=== PATIENT | female | born 1970 | race Caucasian/White ===

== ENCOUNTER → 2016-04-10 | Emergency (ER) ==
[~2016-04-10] MED LIST: NS 1,000 ML IV ONE
[2016-04-10 13:09] LABS: URINE SOURCE CLEAN CATCH
--- NOTE | 2016-04-10 13:22 | PROVIDER DOCUMENTATION ---
HPI-Abdominal Pain/GI Problem - General Chief Complaint: Rectal Bleeding Stated Complaint: DIARRHEA Time Seen by Provider: 04/10/16 13:10 Source: patient Allergies/Adverse Reactions: Patient Allergies Allergy/AdvReac Type Severity Reaction Status Date / Time No Known Allergies Allergy Verified 04/10/16 11:39 Home Medications: Prednisone 10 mg PO DAILY 04/10/16 Stelara 04/10/16 - History of Present Illness-ABD Nature of Presenting Problems: Pt is 45 y/o F presents to the ED with rectal bleeding. Pt states being diagnosed with Crohn's 2 and a half years ago. Pt states having rectal bleeding is normal for her, but she feels like the bleeding has increased. Pt states GI doctor has recently changed her meds. PT denies F. Pt denies N and V. Abdominal Pain Onset Location: denies: RUQ, LUQ, RLQ, LLQ, epigastric, periumbilical, suprapubic, generalized abdomen, flank, unknown, other Pain Radiation: reports: no radiation Quality of Pain: reports: none Onset/Duration: reports: 1 week ago Timing: reports: still present, intermittent Activities at Onset: reports: light activity Exposure to sick contacts?: No Modifying Factors: improves with: nothing Associated Symptoms: reports: weakness. denies: arm pain, cough, fever/chills, loss of appetite, sinus congestion/drainage, nausea, shortness of breath, vomiting Last BM: unsure Dark Stools Present?: reports: other (unsure) Rectal Bleeding: reports: bleeding without stool Rectal Pain: reports: other (Crohn's.) Emesis Description: reports: none Bruising or Bleeding Gums?: No Similar Symptoms Previously?: Yes Recently seen or treated by another doctor?: No Review of Systems - Adult - REVIEW OF SYSTEMS - ADULT Constitutional: denies: chills, fever Eyes: denies: blurred vision, double vision Ears, Nose, Mouth & Throat: denies: ear pain, nose pain, throat pain Cardiovascular: denies: chest pain, heart murmur, irregular heart rate Respiratory: denies: chronic cough, cough, shortness of breath, wheezing Gastrointestinal: reports: rectal bleeding. denies: abdominal pain, diarrhea, nausea, vomiting Genitourinary: denies: dysuria, hematuria Musculoskeletal: denies: bone pain, joint pain, neck pain Integumentary: denies: hives, itching Neurological: reports: no symptoms reported Psychiatric: reports: no symptoms reported Endocrine: reports: no symptoms reported Hematologic/Lymphatic: reports: no symptoms reported Allergic/Immunologic: reports: no symptoms reported All Other Systems: Reviewed and Negative Past History - Adult - PAST MEDICAL HISTORY-ADULT Review of Records: reports: Nursing Assessment Review, Medications Reviewed, Social history reviewed & non-contributory. Major Childhood Illnesses: reports: denies history Cardiovascular: reports: denies history Respiratory: reports: denies history Gastrointestinal: reports: Crohn's Obstetrical/Gynecological: reports: denies history Genitourinary: reports: denies history Musculoskeletal: reports: denies history Neurological: reports: denies history Endocrine/Immune: reports: denies history Other Conditions: reports: denies history - PRIOR SURGERIES/PROCEDURES Surgical/Procedure History: reports: appendectomy, - IMMUNIZATION STATUS Childhood Immunizations: See Nurse Assessment Flu Vaccine: See Nurse Assessment - FAMILY HISTORY Family History: reviewed, not pertinent - SOCIAL HISTORY Smoking: denies Substance Use: denies Living Situation: family Physical Exam-General - PHYSICAL EXAM-ADULT Initial Vital Signs Reviewed: Yes - CONSTITUTIONAL General Appearance: appears well, alert, no apparent distress - EYES Eyes: PERRL/EOMI, pink conjunctivae - HEAD, EARS, NOSE, MOUTH & THROAT HENMT: normocephalic/atraumatic, moist mucous membranes, normal ENT inspection - NECK Neck: non-tender, full range of motion, supple, normal inspection - RESPIRATORY Respiratory: chest non-tender, lungs clear, normal breath sounds - CARDIOVASCULAR Cardiovascular: normal peripheral pulses, regular rate, rhythm, no edema - GASTROINTESTINAL (ABDOMEN) Abdominal Exam: normal bowel sounds, non tender, soft - LYMPHATIC Lymphatic: no adenopathy - MUSCULOSKELETAL Back Exam: normal inspection, no CVA tenderness, no vertebral tenderness Extremity: normal range of motion, non-tender, normal gait - SKIN Integumentary: normal color, normal turgor, warm/dry - NEUROLOGIC Neurologic: pipe layer helper II-XII nml as tested, grossly normal, no motor/sensory deficits - PSYCHIATRIC Psych/Mental Status: normal mood/affect, normal thought content, normal thought process, oriented x 3 Progress - PLAN OF CARE/RESULTS Progress/Plan/Lab Results: Laboratory Tests 04/10/16 12:57 Urine Source CLEAN CATCH Orders Category Date Time Status CBC WITH ELECTRONIC DIFF [HEME] Stat Lab 04/10/16 13:10 Uncollected COMPREHENSIVE METABOLIC PANEL [CHEM] Stat Lab 04/10/16 13:10 Ordered UA [URINALYSIS PL W/POSS RFLX CULT] [URINALYSIS] Stat Lab 04/10/16 12:57 Results 0.9% Sodium Chloride Inj [Ns] 1,000 ml Med 04/10/16 13:12 Active IV 999 mls/hr Vital Signs - 24 hr 04/10/16 11:35 Temperature 98.3 F Pulse Rate 98 H Respiratory 18 Rate Blood Pressure 120/085 O2 Sat by Pulse 97 Oximetry Laboratory Tests 04/10/16 04/10/16 04/10/16 12:57 13:20 13:20 WBC 8.78 RBC 4.33 Hgb 10.3 L Hct 32.9 L MCV 76.0 L MCH 23.8 L MCHC 31.3 L RDW Std Deviation 16.7 H Plt Count 530 H MPV 9.3 Immature Gran % (Auto) 0.8 H Neut % (Auto) 86.6 H Lymph % (Auto) 9.2 L [place] % (Auto) 3.2 Eos % (Auto) 0.1 Baso % (Auto) 0.1 Immature Gran # (Auto) 0.07 H Neut # (Auto) 7.60 H Lymph # (Auto) 0.81 L [place] # (Auto) 0.28 Eos # (Auto) 0.01 Baso # (Auto) 0.01 Sodium 129 L Potassium 3.1 L Chloride 92 L Carbon Dioxide 28 Anion Gap 9 BUN 11 Creatinine 0.7 Estimated GFR/1.73 m2 > 60 BUN/Creatinine Ratio 16 Glucose 119 H Calculated Osmolality 259 Calcium 9.2 Total Bilirubin 0.50 AST 8 L ALT 9 L Alkaline Phosphatase 61 Total Protein 7.7 Albumin 3.0 L Globulin 5.0 Albumin/Globulin Ratio 1.0 Urine Source CLEAN CATCH Urine Color LEÓN Urine Clarity SL. CLOUDY A Urine pH 6.5 Ur Specific [place] 1.010 Urine Protein 1+(30 mg/dL) A Urine Ketones TRACE Urine Blood 4+ Urine Nitrite NEGATIVE Urine Bilirubin 1+ A Urine Urobilinogen 4+(12 mg/dL) Urine Microscopic RBC 20-40 A Urine WBC 2+ A Urine Microscopic WBC 10-20 A Ur Epithelial Cells >10 A Urine Bacteria 3+ Urine Glucose NEGATIVE Departure - Departure Time of Disposition Order: 14:13 DIAGNOSIS: Crohn's disease Qualifiers: Gastrointestinal tract location: unspecified location Digestive disease complication type: with rectal bleeding Qualified Code(s): K50.911 - Crohn's disease, unspecified, with rectal bleeding Disposition: HOME 01 Certified Medical Emergency: Emergent Condition: Stable Additional Instructions: ED Follow Up Instructions: You have been treated by a care provider in the Emergency Department. These instructions are being provided to you so you can have an understanding of how to care for yourself upon discharge. Upon discharge from the Emergency Department, you are responsible for making arrangements for follow-up care by a physician of your choice. Take all prescribed medications as directed. Return to the Emergency Department immediately for any new or worsening symptoms. You may call the Physician Referral phone number at [phone] to obtain a list of Physicians who are taking new patients. Referrals: None,PCP [Primary Care Provider] - Attestation - Scribe Verification/Attestation Scribe:: Leah Robison Acting as Scribe for:: Robb Rojas Scribe documention review:: This chart was documented by a scribe and accurately reflects the service the provider performed and the decisions made by the provider.
[2016-04-10 13:26] LABS: BILIRUBIN URINE 1+ (NEGATIVE); BLOOD URINE 4+ (NEGATIVE); CLARITY SL. CLOUDY (CLEAR); COLOR AMBER; GLUCOSE URINE NEGATIVE (NEGATIVE); LEUKOCYTES URINE 2+ (NEGATIVE); NITRITE URINE NEGATIVE (NEGATIVE); PH URINE 6.5; PROTEIN URINE 1+(30 mg/dL) mg/dL (NEGATIVE); UROBILINOGEN URINE 4+(12 mg/dL)
[2016-04-10 13:27] LABS: URINE CULTURE PL NEEDED? YES; URINE EPITHELIAL CELLS >10 /HPF (<10); URINE RBC 20-40 /HPF (<10)
[2016-04-10 13:42] LABS: AGAP 9; ALKALINE PHOSPHATASE 61 U/L (32-104); BUN 11 mg/dL (8-22); CALCIUM 9.2 mg/dL (8.8-10.2); CHLORIDE 92 mmol/L (98-107); COSMO 259; GOT 8 U/L (10-30); GPT 9 U/L (10-36); POTASSIUM 3.1 mmol/L (3.5-5.1); SODIUM 129 mmol/L (136-145); TCO2 28 mmol/L (25-35); TOTAL PROTEIN 7.7 g/dL (6.3-8.3)
[2016-04-10 14:03] LABS: BASO% 0.1 % (0.0-0.8); EOS# 0.01 X1000 (0.0-0.7); EOS% 0.1 % (0.0-10.0); HEMATOCRIT 32.9 % (37.0-47.0); HEMOGLOBIN 10.3 g/dL (12.0-16.0); IMM GRAN# 0.07 X1000 (0.0-0.04); IMM GRAN% 0.8 % (0.0-0.5); LYMPH# 0.81 X1000 (1.2-3.4); LYMPH% 9.2 % (20.5-51.1); MANUAL DIFF NEEDED? NO; MCH 23.8 PG (27-31); MCHC 31.3 g/dL (33-37); MONO# 0.28 X1000 (0.11-0.59); MONO% 3.2 % (1.7-9.3); MPV 9.3 FL (7.4-10.4); NEUT% 86.6 % (42.2-75.2); PLT 530 X1000 (130-400); RBC 4.33 XMIL (4.2-5.4)
[2016-04-10 14:32] VITALS: BP 122/64
== END | disposition home or self-care (01) ==
LOC: P.ED 11:31
DX: K50.911 Crohn's disease, unspecified, with rectal bleeding (principal); R19.7 Diarrhea, unspecified; K62.5 Hemorrhage of anus and rectum; R53.1 Weakness; Z79.52 Long term (current) use of systemic steroids; Z79.899 Other long term (current) drug therapy
CPT/HCPCS: 36415; 80053; 81001; 85025; 87088; 96360; J7030